=== PATIENT | male | born 1965 | race Two or more races ===

== ENCOUNTER 2025-06-01 11:41 | Observation (INO) | payer MEDICAID, SELFPAY ==
[2025-06-01 11:55] VITALS: BP 169/81; PULSE 70; RESP 16; TEMP 37; O2SAT 100; BMI 30.9
--- NOTE | 2025-06-01 12:06 | PD.EDRME ---
Rapid Medical Screening Exam RME Arrival date/time: 06/01/25 11:41 59-year-old male with no known medical history was sent to the emergency room by his primary care provider for low hemoglobin level. Patient also states he is been having some abdominal pain for the last 4 days. I have greeted and performed a focused initial assessment of this patient. A comprehensive ED assessment and evaluation of the patient, analysis of all test results, and completion of the medical decision making process will be conducted by additional ED providers. Chief Complaint: General Adult/Misc Complain Time Seen by Provider: 06/01/25 11:55 Vital signs: Vital Signs Temperature 98.6 F 06/01/25 11:55 Pulse Rate 70 06/01/25 11:55 Respiratory Rate 16 06/01/25 11:55 Blood Pressure 169/81 H 06/01/25 11:55 Pulse Oximetry (%) 100 06/01/25 11:55 Oxygen Delivery Method Room Air 06/01/25 11:55 Vital signs reviewed by provider: Yes
[2025-06-01 12:53] LABS: Basophils # (Auto) 0.0 Thou/mm3 (0.0-0.2); Basophils % (Auto) 0 % (0-2.5); Eosinophils # (Auto) 0.2 Thou/mm3 (0.0-0.5); Eosinophils % (Auto) 3 % (0-10); Hematocrit 29.9 % (41.0-53.0); Immature Granulocytes Auto 0.02 Thou/mm3 (0.00-0.00); Lymphocytes # (Auto) 1.4 Thou/mm3 (1.0-4.8); Lymphocytes % (Auto) 22 % (10-50); Mean Corpuscular HGB Conc 28.4 g/dl (31.0-37.0); Mean Corpuscular Hemoglobin 18.8 pg (25.0-35.0); Mean Corpuscular Volume 66 fL (80-100); Monocytes # (Auto) 0.5 Thou/mm3 (0.0-0.8); Monocytes % (Auto) 8 % (0-12); Neutrophils # (Auto) 4.0 Thou/mm3 (1.8-7.7); Neutrophils % (Auto) 66 % (37-80); Nucleated Red Blood Cell # 0.00 Thou/mm3 (0.00-0.00); Nucleated Red Blood Cell % 0 /100 WBC (0); Platelet Count 289 Thou/mm3 (140-440); RDW Standard Deviation 44.5 fL (35.1-43.9); Red Blood Count 4.53 Miln/mm3 (4.50-5.90); White Blood Count 6.1 Thou/mm3 (3.8-10.6)
[2025-06-01 12:56] LABS: Hemoglobin 8.5 g/dL (13.5-16.0)
[2025-06-01 13:00] LABS: INR 1.0 (0.9-1.3); Partial Thromboplastin Time 23.4 Seconds (22.0-36.0); Prothrombin Time 10.9 Seconds (9.0-12.2)
[2025-06-01 13:03] LABS: Alanine Aminotransferase 40 U/L (10-49); Albumin, Serum 4.5 gm/dL (3.5-5.0); Albumin/Globulin Ratio 1.6 (1.2-2.2); Alkaline Phosphatase 62 U/L (46-116); Anion Gap 9 (7-16); Aspartate Amino Transferase 38 U/L (0-34); BUN/Creatinine Ratio 13 Ratio (12-20); Bilirubin,Total 0.9 mg/dL (0.3-1.2); Blood Urea Nitrogen 10 mg/dL (9-23); Calcium 9.1 mg/dL (8.3-10.6); Calcium (Corrected) 9.1 mg/dL (8.5-10.1); Carbon Dioxide 26.6 mMol/L (20.0-31.0); Chloride 105 mMol/L (98-107); Creatinine (Component) 0.8 mg/dL (0.6-1.3); Estimated Creatinine Clearance 121.7 mL/min (>60); Globulin 2.8 gm/dL (2.3-3.5); Glucose 194 mg/dL (74-106); Osmolality,Calculated 285 (275-295); Potassium 4.4 mMol/L (3.4-5.1); Sodium 141 mMol/L (136-145); Total Protein 7.3 gm/dL (5.7-8.2); eGFR > 60 See Note
[2025-06-01 15:18] LABS: OBS Card Lot # 0124; OBS QC OK? Yes; Occult Blood, Stool Negative (Negative)
[2025-06-01 15:40] LABS: OBS Developer Lot # 04/24
[2025-06-01 15:41] VITALS: BP 146/78; PULSE 65; RESP 18; TEMP 37; O2SAT 99
--- NOTE | 2025-06-01 15:41 | ESHP_ITS ---
<Statement entered by Candido Lopez MD - 06/01/25 19:47> I saw and examined patient personally and supervised PGY 1 resident, Dr. Molina with formulating a management plan. I agree with the documentation with the exceptions as listed below. Patient is a Australian-speaking 59-year-old male with a PMH of HTN, HLD, and pre- diabetes who presented directly from clinic to the [facility] ED on 06/01/25 after being urged to do so by his PCP for a hemoglobin of 7.2. Patient was admitted for the work-up and management of microcytic anemia suspected to be 2/2 GI bleed. Problem list: 1. Acute blood loss anemia secondary to GI bleed for investigation 2. Hematochezia 3. Primary hypertension 4. Hyperlipidemia Patient's presented with a history of hematochezia for the last few days. On admission his hemoglobin was found to be 8.1. GI, Dr. Covarrubias was consulted who recommended colonoscopy after adequate bowel prep. Plan of care discussed with Attending Dr. Jacob Lopez MD PGY 2 Disclaimer: This note was dictated by speech recognition. Minor errors in human geography faculty member may be present due to voice recognition software. Documentation for date of: 06/01/25 HPI History of Present Illness History of present illness: Patient is a Australian-speaking 59-year-old male with a PMH of HTN, HLD, and pre- diabetes who presented directly from clinic to the [facility] ED on 06/01/25 after being urged to do so by his PCP for a hemoglobin of 7.2. He reports abdominal pain that has been ongoing for 5 days but states that this was not the reason he came to the hospital. The abdominal pain is primarily localized to the epigastrium and LLQ and worsens with palpation but not with food intake. This pain comes and goes and is associated with the urge to defecate and he endorses ongoing diarrhea of 2 days duration. He also reports that he has had an upper endoscopy done before which found bacteria and 2 lower endoscopies that only showed external hemorrhoids but were otherwise benign. Patient states that he often has 4-5 day episodes of hematochezia (with red blood noted in his stool) that seem to worsen when he feels like his hemorrhoids have become more swollen. He denies any recent fever, cough, chest pain, shortness of breath, constipation, urinary symptoms, or leg swelling. PSH: none Medications: HTN medications Allergies: NKDA FH: none SH: lives in a house in [place] with and 3 kids, drank an average of 3- 6 beers per day from age 17-now, smoked a pack a day from age [age], used to do cocaine in his 30s In the ED, vitals showed: BP 169/81 HR 70 RR 16 Temp 98.6 SpO2 100% on room air CBC showed Hgb 8.5 (MCV 66, RDW 44.5) but was otherwise WNL. Coagulation panel was WNL. CMP showed glucose 194, AST 38, and ALT 40. Stool occult blood was negative. Imaging: None In the ED, patient was started on GoLytely in preparation for endoscopic studies by GI (Dr. Covarrubias). Patient was admitted for the work-up and management of microcytic anemia suspected to be 2/2 GI bleed. Review of Systems Review of Systems Systems Reviewed: All systems reviewed, normal except as documented Exam Vital Signs Temp Pulse Resp BP Pulse Ox O2 Del Method 98.6 F 70 16 169/81 H 100 Room Air 06/01/25 11:55 06/01/25 11:55 06/01/25 11:55 06/01/25 11:55 06/01/25 11:55 06/01/25 11:55 Narrative Exam General: A/O x3, no acute distress. Skin: Vitiligo of bilateral hands. Warm, dry, intact, no obvious rash. Head: Normocephalic, atraumatic. Eyes: PERRL, EOMI. Anicteric, vision grossly intact. Ears: No ear pain, no ear discharge, Hearing grossly intact. Nose: No nasal discharge. Mouth/Throat: Oral mucosa moist. No obvious lesions in oropharynx. Neck: Neck supple, non-tender, no cervical lymphadenopathy. Cardiovascular: Regular rate and rhythm, no murmur, no JVD or carotid bruits. +S1/S2. Respiratory: Bilateral lungs are clear to auscultation, respirations unlabored, no crackles, no wheezing. No accessory muscle use. Gastrointestinal: Abdominal tenderness to palpation of epigastrium and LLQ. Soft, non-distended, no palpable masses. No guarding or rebound tenderness. Peristalsis present. Extremities: Symmetrical, no significant deformities. No edema, no cyanosis, no clubbing. 2+ radial pulse bilaterally, 2+ posterior tibial pulse bilaterally. Neuro: No focal deficits observed. Conversant, moving all extremities. No overt cerebellar signs/incoordination. Psychiatric: Cooperative, appropriate affect. Results: Labs 06/02/25 05:09 06/02/25 05:09 Labs: Short CBC 06/01/25 Range/Units 12:35 WBC 6.1 (3.8-10.6) Thou/mm3 Hgb 8.5 L (13.5-16.0) g/dL Hct 29.9 L (41.0-53.0) % Plt Count 289 (140-440) Thou/mm3 BMP 06/01/25 12:35 Sodium 141 Potassium 4.4 Chloride 105 Carbon Dioxide 26.6 BUN 10 Creatinine 0.8 Glucose 194 H Calcium 9.1 Liver Function 06/01/25 Range/Units 12:35 Total Bilirubin 0.9 (0.3-1.2) mg/dL AST 38 H (0-34) U/L ALT 40 (10-49) U/L Alkaline Phosphatase 62 (46-116) U/L Albumin 4.5 (3.5-5.0) gm/dL Quality Measures Quality Measures none Medications Home Medications and Allergies Home Medications ?Medication ?Instructions ?Recorded ?Confirmed ?Type lisinopril 40 mg tablet 40 mg PO QDAY high blood pre ssure 06/01/25 06/01/25 History Allergies Allergy/AdvReac Type Severity Reaction Status Date / Time No Known Allergies Allergy Verified 06/01/25 16:25 Visit Medications Polyethylene Glycol/Electrolytes (Na Sanches/Nahco3/Max/Peg (Golytely) 4,000 Ml Btl) 4,000 ml PO X1 ONE Stop: 06/01/25 15:08 Assessment & Plan Plan Patient is a Australian-speaking 59-year-old male with a PMH of HTN, HLD, and pre- diabetes who presented directly from clinic to the [facility] ED on 06/01/25 after being urged to do so by his PCP for a hemoglobin of 7.2. Patient was admitted for the work-up and management of microcytic anemia suspected to be 2/2 GI bleed. #??GI bleed #??Acute blood loss anemia #Microcytic anemia 06/01 admission Hgb 8.5 (MCV 66, RDW 44.5), coagulation panel WNL, stool occult blood (-) Patient reports that he came here after his clinic urged him to for Hgb 7.2 Endorses 5 days of epigastric and LLQ abdominal pain (along with 2 days of non- bloody diarrhea, no hematemesis) that does not worsen with food intake as well as recurrent hematochezia that patient believes is due to his external hemorrhoids Also reports that he previously had an upper endoscopy performed before that found bacteria (possible H.pylori) 01/02/19 colonoscopy showed benign findings There may also be a concomitant iron deficiency anemia which is the most common cause of microcytic anemias Reports drinking 3-6 beers per day that is ongoing and started at age 17 (now 59) DDx: bleeding external hemorrhoids, diverticulosis, peptic ulcer disease, esophageal varices, gastritis Dx: -Upper and lower EGD pending -Consider iron panel Rx: -Monitor Hgb, transfuse if <7 -NPO, pending EGD -Avoid aspirin and NSAIDs #Hypertension Patient reports PMH of HTN and home medications for HTN treatment 06/01 admission BP 169/81, asymptomatic Rx: -Consider restarting home medications after medication reconciliation is completed #Hyperlipidemia Patient reports PMH of HLD Dx: -Ordered lipid panel, results pending #Pre-diabetes Patient reports PMH of pre-diabetes Dx: -Ordered hemoglobin A1c, results pending #Alcohol use disorder 06/01 admission AST slightly elevated 38, ALT 40 (WNL), total bilirubin WNL, coagulation panel WNL, no jaundice or ascites noted on physical exam Reports drinking 3-6 beers per day that is ongoing and started at age 17 (now 59) Rx: -Counseling on cessation of alcohol intake Hospital Management: Disposition: admitted for the work-up and management of microcytic anemia suspected to be 2/2 GI bleed Diet: NPO (pending EGD) GI Prophylaxis: none (consider IV Protonix after EGD) Bowel Prophylaxis: none DVT Prophylaxis: contraindicated (bleeding risk) CODE STATUS: Full Code I have examined the patient and conferred with my attending, Dr. James, and my senior resident, Dr. Lopez, regarding them. Martín Molina, DO PGY-1 Internal Medicine Attending Provider Attestation/Addendum I have examined the patient, reviewed labs and imaging findings, discussed the case with the resident(s), and reviewed entered orders. I agree with the plan of care as outlined in this note, with these additional summaries/recommendations: After examination of the patient and review of the clinical data, I feel that this patient needs admission to the hospital for further treatment and evaluation. Patient is a 59-year-old male with a medical history of primary hypertension, dyslipidemia, and obesity who presents to [facility] emergency department on 06/01/2025 with chief complaint of malaise, low hemoglobin, and intermittent abdominal pain. Patient seen at bedside. He reports he was seen by his primary care physician today and was sent to the emergency room because of hemoglobin 7.2 and abdominal pain. Patient diagnosed with GI bleed. Most likely lower. Start IV fluids and GoLytely. Gastroenterology consulted with plans for colonoscopy. Hold all chemical anticoagulation. Clear liquid diet okay. Transfuse for hemoglobin less than 7. No evidence of coagulopathy. Please see residents note for additional details and management. Dr. Jacob MD
--- NOTE | 2025-06-01 15:46 | PD.EDADULT ---
ED General RME/HPI General Chief complaint: General Adult/Misc Complain Stated complaint: SENT BY CLINIC TO CHECK FOR ANEMIA, ABD PAIN Time Seen by Provider: 06/01/25 11:55 Arrival date/time: 06/01/25 11:41 Limitations: no limitations RME / HPI RME / HPI narrative: 06/01/25 11:41 59-year-old male with no known medical history was sent to the emergency room by his primary care provider for low hemoglobin level. Patient also states he is been having some abdominal pain for the last 4 days. I have greeted and performed a focused initial assessment of this patient. A comprehensive ED assessment and evaluation of the patient, analysis of all test results, and completion of the medical decision making process will be conducted by additional ED providers. DR. WAHL MAIN ED EVALUATION 59 year old male with history of hypertension and anemia presents to the ED, referred by his PCP, for evaluation of low hemoglobin levels. Patient states he had consulted his PCP for abdominal pain and bright red blood in stool beginning several days ago and had labs performed. States he was called today stating his hemoglobin was low and advised to come to the ED for further evaluation and treatment. Patient states he has had the bright red blood in stool on/off for several weeks. However, occurring more frequently in the last 4 days. Mentioned in 2019 he was evaluated here also for blood in stool and had a colonoscopy performed where he was then transferred to [place] for GI services. States while in [place] had both an EGD and colonoscopy performed that reportedly only showed the hemorrhoids, otherwise negative. No other associated symptoms reported. Denies fevers, chills, shortness of breath, weakness, nausea, vomiting, or urinary symptoms. Related Data Home Medications ?Medication ?Instructions ?Recorded ?Confirmed ferrous sulfate 325 mg (65 mg 01/01/19 iron) tablet (iron) Review of Systems Review of Systems Systems Reviewed: All systems reviewed, normal except as documented Past Medical History Past Medical History CARDIAC: Positive Hypercholesterolemia HEMATOLOGIC: Positive Anemia Social History SMOKING STATUS: Never smoker ED Exam General Limitations: Present no limitations General appearance: Present alert and in no apparent distress Head Head exam: Present atraumatic, normocephalic and normal inspection Eye Eye exam: Present normal appearance, PERRL and EOMI ENT ENT exam: Present normal exam, normal oropharynx and mucous membranes moist Neck Neck exam: Present normal inspection, full ROM and trachea midline Chest Chest inspection: Present normal inspection and symmetric chest wall rise Respiratory Respiratory exam: Present normal lung sounds bilaterally Cardiovascular Cardiovascular exam: Present regular rate, normal rhythm and normal heart sounds Abdominal Exam Abdominal exam: Present soft and normal bowel sounds Rectal Exam Rectal exam: Present normal rectal tone, hemorrhoids and other (Exam performed in presence of female RN, there are external hemorrhoids noted that are soft, not actively bleeding. No stool in rectal vault. ) Extremities Exam Extremities exam: Present normal inspection and full ROM Back Exam Back exam: Present normal inspection and full ROM Neurological Exam Neurological exam: Present alert, oriented X3 and CN II-XII intact Psychiatric Psychiatric exam: Present normal affect and normal mood Skin Skin exam: Present warm, dry, intact and normal color Course Quality Measures none Orders Category Date Time Status COVID-19 Screening Questionnaire NOW Care 06/01/25 15:08 Active Decision to Admit X1 Care 06/01/25 15:08 Active Consult to Gastroenterology Stat Cons 06/01/25 15:07 Ordered Diet Clear Liquid Diet 06/01/25 Dinner Active CBC Stat Lab 06/01/25 12:35 Completed CMP [Comprehensive Metabolic Panel] Stat Lab 06/01/25 12:35 Completed Occult Blood, Stool (LAB) Routine Lab 06/01/25 14:45 Completed PT [Prothrombin Time with INR] Stat Lab 06/01/25 12:35 Completed PTT [Partial Thromboplastin Time] Stat Lab 06/01/25 12:35 Completed Red Blood Cells Stat Lab 06/01/25 12:35 Results Troponin I Stat Lab 06/01/25 14:57 Ordered Type and Screen Stat Lab 06/01/25 12:35 Results NA SAL/NAHCO3/SHANNON/PEG (Golytely) [Golytely] Med 06/01/25 15:07 Pending 4,000 ml PO X1 ONE Vital Signs Vital signs: Vital Signs Temperature 98.6 F 06/01/25 11:55 Pulse Rate 70 06/01/25 11:55 Respiratory Rate 16 06/01/25 11:55 Blood Pressure 169/81 H 06/01/25 11:55 Pulse Oximetry (%) 100 06/01/25 11:55 Oxygen Delivery Method Room Air 06/01/25 11:55 Pulse ox is 100% on room air which is adequate. Discharge Plan Plan Patient Disposition: Admit Acute Care w/in Hospital Problem List Clinical Impression: GI (gastrointestinal bleed) MDM Narrative MDM hospital course (for use when minimal MDM required): 59-year-old male with history of iron deficiency anemia and external hemorrhoids presents to the emergency department today after 1 to 2 weeks of bright red blood per rectum. The patient states that he normally will have drops of blood coming from his rectum when he is trying to have a bowel movement. It is usually without stool or that he has blood. Patient went to his primary care physician today and had a test that showed that he was anemic . Patient does have some fatigue with increasing in bright red blood per rectum over the last 1 week. Patient denies chest pain or shortness of breath. No dizziness. Last colonoscopy that is documented on his record was in 2019 which was negative negative. It was done at [place] at the time. Patient otherwise is not on aspirin. Not on blood thinner. Is not a heavy drinker. In the emergency department the patient otherwise has a normal pulse, hemoglobin is abnormal at 8.5/29. His platelets are normal at 289. BUN and creatinine are normal at 10/0.8. On rectal exam here in the emergency department the patient has external hemorrhoids that are soft. The rectal exam was done with the nursing present. There was no stool in the vault. There was no Hemoccult completed because there was no stool in the vault. Patient's skin is slightly pale but otherwise normal cap refill. Lungs are clear bilaterally. Patient is not tachycardic. No murmurs No petechiae noted. In summary this is a 59-year-old male with history of anemia with worsening lower GI bleed over the last 2 weeks. Patient noted to have a hemoglobin of 8. There is no previous hemoglobin in our system. Otherwise coags are normal with normal LFTs normal BUN/creatinine but abnormal hemoglobin and hematocrit. Platelets are normal. Discussed with our GI on-call Dr. Covarrubias who agrees that the patient likely needs a colonoscopy for he gets discharged home. He recommends that we start GoLytely now and keep the patient on a clear liquid diet now and he will consult and do a colonoscopy as soon as possible. Alessia Harris, am scribing for and in the presence of Dr. Wahl. 1503p: I spoke with GI Dr. Covarrubias. Discussed patients PMHx, HPI, ED course, exam findings, labs results. He agrees to consult. 1505p: I spoke with hospitalist team A for admission. Clinical Information Provided by: patient Medical Records reviewed [facility] Meds/Rx considered, not ordered None Labs/Rad/Tests considered, not ordered None Chronic Illness/Social Conditions which may negatively complicate care or outcome(s)-explain: None or not applicable EKG EKG not done Labs Labs: see narrative above Imaging Imaging interpretation: none Medication Administration(s) Medication Administration History Polyethylene Glycol/Electrolytes (Na Sal/Nahco3/Shannon/Peg (Golytely) 4,000 Ml Btl) 4,000 ml PO X1 ONE Stop: 06/01/25 15:08 See above Diagnosis Diagnoses ruled out and/or further discussions: GI bleed
[2025-06-01 16:37] LABS: Troponin I 0.035 ng/mL (0.0-0.045)
[2025-06-01 17:47] VITALS: BMI 30.9
--- NOTE | 2025-06-01 17:52 | PD.RESCONSUL ---
HPI Data of Consult Requesting Physician: Armando James MD Admitting Provider: Armando James MD Attending Provider: Armando James MD Primary Care Provider: CAITIE Hurley ([facility]) Consult Narrative Reason for consult: Hgb 7.2 outpatient, c/f lower GI bleed History of present illness: Mr. Montiel is a 59 year old gentleman with hx of htn, hld, and prediabetes, who presented to the ed after being prompted to go to the ED by [place]. He has a history of chronic microcytic anemia for which he was has previously recieved iron infusions. His outpatient labs were reported to have hgb 7.2. He reports having very minimal epigastric tenderness and LLQ pain that is 1/10. He denies diarrhea or constipation, and endorses going to the bathroom 2 times a day. He states that he has history of hemorrhoids that he was able to palpate. He reports self expressing the hemorrhoids and having some small bleeding. He reports having last colonoscopy about 4-5 years ago, He notes blood when he wipes but no mick blood per rectum. He otherwise feels well, no fever, no chills, no cough no chest pain, no shortness of breath dysuria. His last meal was at 10:30 AM today. PSH: none Medications: HTN medications Allergies: NKDA FH: none SH: lives in a house in [place] with and 3 kids, drank an average of 3-6 beers per day from age 17-now, smoked a pack a day from age [age], used to do cocaine in his 30s In the ED, vitals showed: BP 169/81 HR 70 RR 16 Temp 98.6 SpO2 100% on room air CBC showed Hgb 8.5 (MCV 66, RDW 44.5) but was otherwise WNL. Coagulation panel was WNL. CMP showed glucose 194, AST 38, and ALT 40. Stool occult blood was negative. cc:: cc: Armando James MD Exam Vital Signs Temp Pulse Resp BP Pulse Ox O2 Del Method 98.6 F 65 18 146/78 H 99 Room Air 06/01/25 15:41 06/01/25 15:41 06/01/25 15:41 06/01/25 15:41 06/01/25 15:41 06/01/25 15:41 Narrative Exam GENERAL: no acute distress, AAO x3, sitting comfortably in chair, not in hospital gown HEENT: Head AT/ NC. Mucous membranes moist. PERRL. NECK: Supple, no lymphadenopathy, no carotid bruits. CARDIOVASCULAR: RRR. Normal S1/S2, No m/r/g. No pitting edema of bilateral LEs. RESPIRATORY: CTAB. No wheezing, rhonchi, crackles. GASTROINTESTINAL: Abdomen soft, non tender no palpable masses. Bowel sounds present c/o 1/10 epigastric and LLQ tenderness MUSCULOSKELETAL:? No cyanosis or edema, no visible joint swelling. NEUROLOGICAL: CN II-XII grossly intact. No focal deficits. Sensation intact, symmetric. PSYCHIATRIC: Awake and alert, not agitated, normal mood and affect. SKIN: vitaligo on dorsal aspect of hands Results Labs 06/01/25 12:35 06/01/25 12:35 Labs: Short CBC 06/01/25 Range/Units 12:35 WBC 6.1 (3.8-10.6) Thou/mm3 Hgb 8.5 L (13.5-16.0) g/dL Hct 29.9 L (41.0-53.0) % Plt Count 289 (140-440) Thou/mm3 BMP 06/01/25 12:35 Sodium 141 Potassium 4.4 Chloride 105 Carbon Dioxide 26.6 BUN 10 Creatinine 0.8 Glucose 194 H Calcium 9.1 Cardiac Enzymes 06/01/25 Range/Units 15:45 Troponin I 0.035 (0.0-0.045) ng/mL Liver Function 06/01/25 Range/Units 12:35 Total Bilirubin 0.9 (0.3-1.2) mg/dL AST 38 H (0-34) U/L ALT 40 (10-49) U/L Alkaline Phosphatase 62 (46-116) U/L Albumin 4.5 (3.5-5.0) gm/dL Quality Measures Quality Measures VTE prophylaxis Medications Home Medications and Allergies Home Medications ?Medication ?Instructions ?Recorded ?Confirmed ?Type lisinopril 40 mg tablet 40 mg PO QDAY high blood pressure 06/01/25 06/01/25 History Allergies Allergy/AdvReac Type Severity Reaction Status Date / Time No Known Allergies Allergy Verified 06/01/25 16:25 Visit Medications Discontinued Medications Polyethylene Glycol/Electrolytes (Na Sanches/Nahco3/Max/Peg (Golytely) 4,000 Ml Btl) 4,000 ml PO X1 ONE Stop: 06/01/25 16:31 Assessment & Plan Plan Mr. Montiel is a 59 year old gentleman with hx of prediabetes, htn, hld, and chronic microcytic anemia #Chronic Microcytic Anemia Ddx internal vs external hemrrhoids. diverticulosis, gastric ulcers pt reports having hemrhoids that he can palpate. He notes some hematachezia but no mick red blood per rectum. on admission FOBT negative. Has previously recieved iron infusions in ~Aug 2024. pt last reported colonoscopy was ~4 years ago, with no concerning findings. Has reported having endoscopy in the past with bacteria unclear if he completed treatment for hpylori at that time he has reported 5-6 etoh drinks /week so there is concern for possible varicies, however he has not had any hematemesis. Hgb 8.5 on admission, unclear what his baseline is, was sent to the ED by PCP for hgb 7.2 on labs. pt is asymptomatic of his anemia. Plan: - Golytely - colonoscopy tomorrow if stools are clear - Clear liquid diet - Iron panel, consider iron infusion during this admission - Transfuse if symptomatic or Hgb<7 HTN HLD Prediabetes -management per primary team Plan discussed with Dr. Satish Garcia MD PGY1 Attending Provider Attestation/Addendum Patient evaluated patient examined by me Laboratory data reviewed GoLytely prep consent for colonoscopy with possible biopsy possible therapeutic intervention under intravenous moderate sedation Clear liquid diet to continue as long as the patient is drinking GoLytely If 1 gallon of GoLytely is not good enough start the second gallon If colonoscopy is negative we will consider doing an upper endoscopy Thank you for the opportunity to participate in the care of this patient
[2025-06-01 18:31] LABS: Cardiac Risk Estimate 3.5 RATIO (4.0-6.7); Cholesterol 153 mg/dL (132-200); HDL Cholesterol 44 mg/dL (40-60); LDL Cholesterol,Calculated 83 mg/dL (0-130); Triglycerides 131 mg/dL (30-150)
[2025-06-01 18:34] LABS: Ferritin 4 ng/mL (10.5-307.3); Iron 7 mcg/dL (65-175); Percent Iron Saturation 1 % (20-55); Total Iron Binding Capacity 450 mcg/dL (250-425); Unsaturated Iron Binding 443 (225-295)
[2025-06-01 19:37] VITALS: RESP 99
[2025-06-01 20:00] VITALS: BP 166/78; PULSE 60; RESP 17; TEMP 36.2; O2SAT 100
[2025-06-01] MEDS: NA SU/NAHCO3/KC/PEG (Golytely) 4,000 ML BTL 4000 ML PO (20:56)
[2025-06-02] VITALS (21 sets, daily range): BP systolic 132–170; BP diastolic 68–102; PULSE 57–78; RESP 12–98; TEMP 36.2–36.6; O2SAT 97–100
[2025-06-02 06:18] LABS: Basophils # (Auto) 0.0 Thou/mm3 (0.0-0.2); Basophils % (Auto) 1 % (0-2.5); Eosinophils # (Auto) 0.3 Thou/mm3 (0.0-0.5); Eosinophils % (Auto) 6 % (0-10); Hematocrit 27.5 % (41.0-53.0); Immature Granulocytes Auto 0.01 Thou/mm3 (0.00-0.00); Lymphocytes # (Auto) 1.6 Thou/mm3 (1.0-4.8); Lymphocytes % (Auto) 31 % (10-50); Mean Corpuscular HGB Conc 28.7 g/dl (31.0-37.0); Mean Corpuscular Hemoglobin 18.8 pg (25.0-35.0); Mean Corpuscular Volume 65 fL (80-100); Monocytes # (Auto) 0.6 Thou/mm3 (0.0-0.8); Monocytes % (Auto) 11 % (0-12); Neutrophils # (Auto) 2.6 Thou/mm3 (1.8-7.7); Neutrophils % (Auto) 51 % (37-80); Nucleated Red Blood Cell # 0.00 Thou/mm3 (0.00-0.00); Nucleated Red Blood Cell % 0 /100 WBC (0); Platelet Count 253 Thou/mm3 (140-440); RDW Standard Deviation 43.5 fL (35.1-43.9); Red Blood Count 4.21 Miln/mm3 (4.50-5.90); White Blood Count 5.1 Thou/mm3 (3.8-10.6)
[2025-06-02 06:28] LABS: Hemoglobin 7.9 g/dL (13.5-16.0)
[2025-06-02 06:32] LABS: Alanine Aminotransferase 43 U/L (10-49); Albumin, Serum 4.1 gm/dL (3.5-5.0); Albumin/Globulin Ratio 1.7 (1.2-2.2); Alkaline Phosphatase 54 U/L (46-116); Anion Gap 9 (7-16); Aspartate Amino Transferase 39 U/L (0-34); BUN/Creatinine Ratio 11 Ratio (12-20); Bilirubin,Total 1.0 mg/dL (0.3-1.2); Blood Urea Nitrogen 8 mg/dL (9-23); Calcium 8.8 mg/dL (8.3-10.6); Calcium (Corrected) 8.8 mg/dL (8.5-10.1); Carbon Dioxide 26.4 mMol/L (20.0-31.0); Chloride 107 mMol/L (98-107); Creatinine (Component) 0.7 mg/dL (0.6-1.3); Estimated Creatinine Clearance 139.0 mL/min (>60); Globulin 2.4 gm/dL (2.3-3.5); Glucose 121 mg/dL (74-106); Osmolality,Calculated 282 (275-295); Potassium 4.2 mMol/L (3.4-5.1); Sodium 142 mMol/L (136-145); Total Protein 6.5 gm/dL (5.7-8.2); eGFR > 60 See Note
[2025-06-02 06:37] LABS: Glucose Estimated Average 140 mg/dL (80-131); Hemoglobin A1C 6.5 % Hgb (4.8-6.0)
--- NOTE | 2025-06-02 14:42 | ESPR_ITS ---
Documentation for date of: 06/02/25 No overnight events. Patient examined at bedside. Continue GoLytely prep for planned colonoscopy this evening with gastroenterology. Patient's past medical history includes hypertension on lisinopril 40 mg daily, given GoLytely during hospital course patient was started on half dose, lisinopril 20 MGs daily. Please hold if systolic blood pressure less than 110 or MAP less than 65. Patient ASCVD score 14.1% thus recommended high intensity statins. Starting patient off of atorvastatin 40 mg p.o. at bedtime and titrate up to 80 mg at bedtime outpatient. New diagnosis of diabetes mellitus, 6.5. Sliding scale started. Consult diabetic education. Start metformin upon discharge. I have discussed the case with supervising physician and internet media planner physician involved in the care of patient. I personally saw and examined patient and discussed the assessment and plan with the entire medical team, including attending. I agree with assessment and plan as documented below. - The patient's plan was discussed with attending Dr. Halley Paulino MD PGY2 Internal Medicine Subjective Subjective Interval history: No overnight events. Patient was examined at bedside; they appear A&Ox4 and in NAD. Labs today significant for Hgb 8.5 -> 7.9 but was otherwise WNL. Hemoglobin A1c came back at 6.5. Iron panel results showed low iron and ferritin with high TIBC, suggestive of iron deficiency anemia; this is concerning for possible colorectal cancer. Physical exam was benign and unchanged from yesterday. Patient is still pending EGD which will hopefully take place today. Plan Updates: -None Exam Vital Signs Temp Pulse Resp BP Pulse Ox O2 Del Method 97.7 F 57 L 18 133/69 H 99 Room Air 06/02/25 12:00 06/02/25 12:00 06/02/25 12:00 06/02/25 12:00 06/02/25 12:00 06/02/25 12:00 Narrative Exam General: A/O x3, no acute distress. Skin: Vitiligo of bilateral hands. Warm, dry, intact, no obvious rash. Head: Normocephalic, atraumatic. Eyes: PERRL, EOMI. Anicteric, vision grossly intact. Ears: No ear pain, no ear discharge, Hearing grossly intact. Nose: No nasal discharge. Mouth/Throat: Oral mucosa moist. No obvious lesions in oropharynx. Neck: Neck supple, non-tender, no cervical lymphadenopathy. Cardiovascular: Regular rate and rhythm, no murmur, no JVD or carotid bruits. +S1/S2. Respiratory: Bilateral lungs are clear to auscultation, respirations unlabored, no crackles, no wheezing. No accessory muscle use. Gastrointestinal: Abdominal tenderness to palpation of epigastrium and LLQ. Soft, non-distended, no palpable masses. No guarding or rebound tenderness. Peristalsis present. Extremities: Symmetrical, no significant deformities. No edema, no cyanosis, no clubbing. 2+ radial pulse bilaterally, 2+ posterior tibial pulse bilaterally. Neuro: No focal deficits observed. Conversant, moving all extremities. No overt cerebellar signs/incoordination. Psychiatric: Cooperative, appropriate affect. Objective Labs 06/03/25 05:02 06/03/25 05:02 Labs: Laboratory Results - last 24 hr 06/01/25 06/01/25 06/01/25 12:35 14:45 15:45 WBC RBC Hgb Hct MCV MCH MCHC RDW Std Deviation Plt Count Neut % (Auto) Lymph % (Auto) [place] % (Auto) Eos % (Auto) Baso % (Auto) Neut # (Auto) Lymph # (Auto) [place] # (Auto) Eos # (Auto) Baso # (Auto) Immature Gran # (Auto) Absolute Nucleated RBC Immature Gran % Nucleated RBC % Sodium Potassium Chloride Carbon Dioxide Anion Gap BUN Creatinine Estim Creat Clear Calc eGFR BUN/Creatinine Ratio Glucose Estimated Ave Glu mg/dL Hemoglobin A1c Calculated Osmolality Calcium Corrected Calcium Iron TIBC Iron Saturation Unsat Iron Binding Ferritin Total Bilirubin AST ALT Alkaline Phosphatase Troponin I 0.035 Total Protein Albumin Globulin Albumin/Globulin Ratio Triglycerides Cholesterol LDL Cholesterol, Calc HDL Cholesterol Cholesterol/HDL Ratio Stool Occult Blood Negative Blood Type O Positive Antibody Screen NEGATIVE Crossmatch See Detail Blood Bank Wristband ID Yes 06/01/25 06/02/25 16:20 05:09 WBC 5.1 RBC 4.21 L Hgb 7.9 L Hct 27.5 L MCV 65 L MCH 18.8 L MCHC 28.7 L RDW Std Deviation 43.5 Plt Count 253 D Neut % (Auto) 51 Lymph % (Auto) 31 [place] % (Auto) 11 Eos % (Auto) 6 Baso % (Auto) 1 Neut # (Auto) 2.6 Lymph # (Auto) 1.6 [place] # (Auto) 0.6 Eos # (Auto) 0.3 Baso # (Auto) 0.0 Immature Gran # (Auto) 0.01 H Absolute Nucleated RBC 0.00 Immature Gran % 0 Nucleated RBC % 0 Sodium 142 Potassium 4.2 Chloride 107 Carbon Dioxide 26.4 Anion Gap 9 BUN 8 L Creatinine 0.7 Estim Creat Clear Calc 139.0 eGFR > 60 BUN/Creatinine Ratio 11 L Glucose [address] Glu mg/dL 140 H Hemoglobin A1c 6.5 H Calculated Osmolality 282 Calcium 8.8 Corrected Calcium 8.8 Iron 7 L TIBC 450 H Iron Saturation 1 L Unsat Iron Binding 443 H Ferritin 4 L Total Bilirubin 1.0 AST 39 H ALT 43 Alkaline Phosphatase 54 Troponin I Total Protein 6.5 Albumin 4.1 Globulin 2.4 Albumin/Globulin Ratio 1.7 Triglycerides 131 Cholesterol 153 LDL Cholesterol, Calc 83 HDL Cholesterol 44 Cholesterol/HDL Ratio 3.5 L Stool Occult Blood Blood Type Antibody Screen Crossmatch Blood Bank Wristband ID Quality Measures Quality Measures VTE prophylaxis Assessment & Plan Assessment Current Active Medications: Generic Name Dose Route Start Last Admin Trade Name Freq PRN Reason Stop Dose Admin Acetaminophen 650 mg 06/01/25 19:37 Acetaminophen 325 Mg Tablet PO 07/01/25 19:36 Q4HR PRN Fever >100 or Pain 1-3 Albuterol/Ipratropium 3 ml 06/01/25 19:37 Albuterol/Ipratropium (Duoneb) Rt Avelina 3 Ml Nebu INH 07/01/25 19:36 Q2HR PRN SHORTNESS OF BREATH OR WHEEZE Hydralazine HCl 10 mg 06/01/25 19:37 Hydralazine Inj 20 Mg/Ml Vial IVP 07/01/25 19:36 Q4HR PRN SBP >180 Ondansetron HCl 4 mg 06/01/25 19:37 Ondansetron Inj 2 Mg/Ml Inj 2 Ml IVP 07/01/25 19:36 Q6HR PRN NAUSEA OR VOMITING Protocol Plan Patient is a Setswana-speaking 59-year-old male with a PMH of HTN, HLD, and pre- diabetes who presented directly from clinic to the [facility] ED on 06/01/25 after being urged to do so by his PCP for a hemoglobin of 7.2. Patient was admitted for the work-up and management of microcytic anemia suspected to be 2/2 GI bleed. #??GI bleed #??Acute blood loss anemia #Microcytic anemia #Iron deficiency anemia #??Colorectal cancer 06/01 admission Hgb 8.5 (MCV 66, RDW 44.5), coagulation panel WNL, stool occult blood (-) Patient reports that he came here after his clinic urged him to for Hgb 7.2 Endorses 5 days of epigastric and LLQ abdominal pain (along with 2 days of non- bloody diarrhea, no hematemesis) that does not worsen with food intake as well as recurrent hematochezia that patient believes is due to his external hemorrhoids Also reports that he previously had an upper endoscopy performed before that found bacteria (possible H.pylori) 01/02/19 colonoscopy showed benign findings 06/01 iron panel was suggestive for iron deficiency anemia which raises concerns for colorectal cancer Reports drinking 3-6 beers per day that is ongoing and started at age 17 (now 59) DDx: bleeding external hemorrhoids, diverticulosis, peptic ulcer disease, esophageal varices, gastritis Dx: -Upper and lower EGD pending -Ordered iron panel, showed: iron 7, TIBC 450, iron saturation 1%, unsaturated iron binding 443, and ferritin 4, highly suggestive for iron deficiency anemia Rx: -Monitor Hgb, transfuse if <7 -NPO, pending EGD -Avoid aspirin and NSAIDs #Hypertension Patient reports PMH of HTN and home medications for HTN treatment 06/01 admission BP 169/81, asymptomatic Rx: -Lisinopril 20 mg qday, hold if MAP <65 or systolic BP <110-this is half home dose patient is currently on Golytely prep. -Plant to resume after Golytely complete -Hydralazine PRN #Hyperlipidemia Patient reports PMH of HLD ASCVD 14.1%, High intensity statin recommended Dx: -Atorvastatin 40 mg HS -Ordered lipid panel, showed: triglycerides 131, total cholesterol 153, LDL 83, HDL 44 #T2DM Patient reports PMH of pre-diabetes Based on this admission's HgbA1c, patient has now become diabetic-->Hgb A1c 6.5% Dx: -Insulin Sliding Scale Q6HR given NPO status -Consult Diabetic Education -Outpatient Metformin. #Alcohol use disorder 06/01 admission AST slightly elevated 38, ALT 40 (WNL), total bilirubin WNL, coagulation panel WNL, no jaundice or ascites noted on physical exam Reports drinking 3-6 beers per day that is ongoing and started at age 17 (now 59) Rx: -Counseling on cessation of alcohol intake Hospital Management: Disposition: admitted for the work-up and management of microcytic anemia suspected to be 2/2 GI bleed Diet: Clear Liquids (pending EGD) GI Prophylaxis: none (consider IV Protonix after EGD) Bowel Prophylaxis: none DVT Prophylaxis: contraindicated (bleeding risk) CODE STATUS: Full Code I have examined the patient and conferred with my attending, Dr. James, and my senior resident, Dr. Lopez, regarding them. Martín Molina DO PGY-1 Internal Medicine Attending Provider Attestation/Addendum I have examined the patient, reviewed labs and imaging findings, discussed the case with the resident(s), and reviewed entered orders. I agree with the plan of care as outlined in this note, with these additional summaries/recommendations: After examination of the patient and review of the clinical data, I feel that this patient needs admission to the hospital for further treatment and evaluation. Patient is a 59-year-old male with a medical history of primary hypertension, dyslipidemia, and obesity who presents to [facility] emergency department on 06/01/2025 with chief complaint of malaise, low hemoglobin, and intermittent abdominal pain. Patient seen at bedside. No acute overnight events. Patient seen drinking GoLytely and tolerating at this time. He endorses minimal abdominal discomfort which is generalized. Patient admitted for GI bleed. Hemoglobin down to 7.9 today. Will transfuse for hemoglobin less than 7. Iron panel returned showing severe iron deficiency anemia with ferritin 4. Anemia most likely multifactorial secondary to iron deficiency and acute blood loss anemia. Continue to hold all chemical anticoagulation. Gastroenterology consulted with plans for colonoscopy today if patient is clear. If no source of bleeding patient may require EGD prior to discharge. Patient updated on the plan and in agreement. All questions answered to satisfaction. Please see residents note for additional details and management. Dr. Jacob MD
[2025-06-02 17:23] LABS: Path Review Blood Smear Sent to Pathologist
[2025-06-02] MEDS: ATORVASTATIN CALCIUM 20 MG TABLET 40 MG PO (20:34)
[2025-06-02] MEDS: ACETAMINOPHEN 325 MG TABLET 650 MG PO (20:43)
[2025-06-03] VITALS (20 sets, daily range): BP systolic 127–168; BP diastolic 59–87; PULSE 61–77; RESP 16–99; TEMP 36.1–36.9; O2SAT 98–100; BMI 31.1
[2025-06-03 05:43] LABS: Basophils # (Auto) 0.0 Thou/mm3 (0.0-0.2); Basophils % (Auto) 0 % (0-2.5); Eosinophils # (Auto) 0.2 Thou/mm3 (0.0-0.5); Eosinophils % (Auto) 5 % (0-10); Hematocrit 26.6 % (41.0-53.0); Immature Granulocytes Auto 0.01 Thou/mm3 (0.00-0.00); Lymphocytes # (Auto) 1.4 Thou/mm3 (1.0-4.8); Lymphocytes % (Auto) 27 % (10-50); Mean Corpuscular HGB Conc 28.2 g/dl (31.0-37.0); Mean Corpuscular Hemoglobin 18.6 pg (25.0-35.0); Mean Corpuscular Volume 66 fL (80-100); Monocytes # (Auto) 0.6 Thou/mm3 (0.0-0.8); Monocytes % (Auto) 11 % (0-12); Neutrophils # (Auto) 3.1 Thou/mm3 (1.8-7.7); Neutrophils % (Auto) 57 % (37-80); Nucleated Red Blood Cell # 0.00 Thou/mm3 (0.00-0.00); Nucleated Red Blood Cell % 0 /100 WBC (0); Platelet Count 276 Thou/mm3 (140-440); RDW Standard Deviation 44.0 fL (35.1-43.9); Red Blood Count 4.04 Miln/mm3 (4.50-5.90); White Blood Count 5.4 Thou/mm3 (3.8-10.6)
[2025-06-03 05:45] LABS: Hemoglobin 7.5 g/dL (13.5-16.0)
[2025-06-03 06:00] LABS: Alanine Aminotransferase 39 U/L (10-49); Albumin, Serum 3.9 gm/dL (3.5-5.0); Albumin/Globulin Ratio 1.7 (1.2-2.2); Alkaline Phosphatase 52 U/L (46-116); Anion Gap 10 (7-16); Aspartate Amino Transferase 32 U/L (0-34); BUN/Creatinine Ratio 13 Ratio (12-20); Bilirubin,Total 0.7 mg/dL (0.3-1.2); Blood Urea Nitrogen 10 mg/dL (9-23); Calcium 8.5 mg/dL (8.3-10.6); Calcium (Corrected) 8.6 mg/dL (8.5-10.1); Carbon Dioxide 26.3 mMol/L (20.0-31.0); Chloride 107 mMol/L (98-107); Creatinine (Component) 0.8 mg/dL (0.6-1.3); Estimated Creatinine Clearance 121.7 mL/min (>60); Globulin 2.3 gm/dL (2.3-3.5); Glucose 169 mg/dL (74-106); Osmolality,Calculated 287 (275-295); Potassium 4.5 mMol/L (3.4-5.1); Sodium 143 mMol/L (136-145); Total Protein 6.2 gm/dL (5.7-8.2); eGFR > 60 See Note
[2025-06-03] MEDS: INSULIN LISPRO (AdmeLOG) 1 UNIT/0.01 ML UNIT SC (07:38)
--- NOTE | 2025-06-03 10:27 | PC.SS ---
Patient Brian Montiel is a 59 Year old male admitted for GI Bleed for Investigation. SS met with patient at bedside to discuss discharge plan and verify demographic information. Patient reports he lives at home with his family. Patient reports his daughter, Ana Maria Plunkett is his surrogate decision maker, [phone].. Patient is independent with ADL's and does not utilize any source of DME to assist with ambulation. Choice of pharmacy is [facility]. At time of discharge patient will discharge back home. Next of Kin, Daughter, Ana Maria Plunkett Discharge plan: Home
--- NOTE | 2025-06-03 11:38 | PC.SS ---
Patient is pending an EGD for today. Patient will discharge home when medically cleared.
--- NOTE | 2025-06-03 11:55 | ESPR_ITS ---
Documentation for date of: 06/03/25 No overnight events. Patient is now status post colonoscopy with gastroenterology. 25 noted for internal hemorrhoids, grade 3 status post band ligation. Mild diverticulosis also noted in the colon. Patient asked to continue high-fiber diet given diverticulosis. Continue medication. Currently clear liquids given scheduled endoscopy. Iron tablets to be added upon discharge. Continue sliding scale and atorvastatin. Pending EGD. Plan to discharge within the next 24 hours. Senior Resident Attestation: I have discussed the case with supervising physician and legal summer intern physician involved in the care of patient. I personally saw and examined patient and discussed the assessment and plan with the entire medical team, including attending. I agree with assessment and plan as documented below. Kandis Paulino MD PGY-2 Internal Medicine Subjective Subjective Interval history: No overnight events. Patient was examined at bedside; they appear A&Ox4 and in NAD. Vitals/ labs today significant for BP 162/80 and Hgb 7.9 -> 7.5. Physical exam was benign and unremarkable. 06/02 lower endoscopy performed yesterday showed internal hemorrhoids (which were banded) and no signs of diverticular bleeding. Patient is scheduled for upper endoscopy today to evaluate for any other sites of active bleeding. The underlying etiology for this patient's iron deficiency anemia is still unknown but, with his PMH of vitiligo, a differential may include pernicious anemia. Plan Updates: -Follow up on results of upper endoscopy -Started PO lisinopril 40 mg qD -Started PO atorvastatin 40 mg HS -Started PO thiamine 100 mg qD -Started ISS due to patient's new diabetic status -Ordered diabetes education consult Exam Vital Signs Temp Pulse Resp BP Pulse Ox O2 Del Method O2 Flow Rate 97.8 F 77 16 163/59 H 98 Room Air 3 06/03/25 07:21 06/03/25 09:49 06/03/25 07:21 06/03/25 09:49 06/03/25 07:21 06/03/25 07:21 06/02/25 19:30 Narrative Exam General: A/O x3, no acute distress. Skin: Vitiligo of bilateral hands. Warm, dry, intact, no obvious rash. Head: Normocephalic, atraumatic. Eyes: PERRL, EOMI. Anicteric, vision grossly intact. Ears: No ear pain, no ear discharge, Hearing grossly intact. Nose: No nasal discharge. Mouth/Throat: Oral mucosa moist. No obvious lesions in oropharynx. Neck: Neck supple, non-tender, no cervical lymphadenopathy. Cardiovascular: Regular rate and rhythm, no murmur, no JVD or carotid bruits. +S1/S2. Respiratory: Bilateral lungs are clear to auscultation, respirations unlabored, no crackles, no wheezing. No accessory muscle use. Gastrointestinal: Abdominal tenderness to palpation of epigastrium and LLQ. Soft, non-distended, no palpable masses. No guarding or rebound tenderness. Peristalsis present. Extremities: Symmetrical, no significant deformities. No edema, no cyanosis, no clubbing. 2+ radial pulse bilaterally, 2+ posterior tibial pulse bilaterally. Neuro: No focal deficits observed. Conversant, moving all extremities. No overt cerebellar signs/incoordination. Psychiatric: Cooperative, appropriate affect. Objective Labs 06/04/25 04:50 06/04/25 04:50 Labs: Laboratory Results - last 24 hr 06/02/25 06/03/25 05:09 05:02 WBC 5.4 RBC 4.04 L Hgb 7.5 L Hct 26.6 L MCV 66 L MCH 18.6 L MCHC 28.2 L RDW Std Deviation 44.0 H Plt Count 276 Neut % (Auto) 57 Lymph % (Auto) 27 [place] % (Auto) 11 Eos % (Auto) 5 Baso % (Auto) 0 Neut # (Auto) 3.1 Lymph # (Auto) 1.4 [place] # (Auto) 0.6 Eos # (Auto) 0.2 Baso # (Auto) 0.0 Immature Gran # (Auto) 0.01 H Absolute Nucleated RBC 0.00 Immature Gran % 0 Nucleated RBC % 0 Smear Path Review Sent to Pathologist Sodium 143 Potassium 4.5 Chloride 107 Carbon Dioxide 26.3 Anion Gap 10 BUN 10 Creatinine 0.8 Estim Creat Clear Calc 121.7 eGFR > 60 BUN/Creatinine Ratio 13 Glucose 169 H Calculated Osmolality 287 Calcium 8.5 Corrected Calcium 8.6 Total Bilirubin 0.7 AST 32 ALT 39 Alkaline Phosphatase 52 Total Protein 6.2 Albumin 3.9 Globulin 2.3 Albumin/Globulin Ratio 1.7 Quality Measures Quality Measures VTE prophylaxis Assessment & Plan Assessment Current Active Medications: Generic Name Dose Route Start Last Admin Trade Name Randyq PRN Reason Stop Dose Admin Acetaminophen 650 mg 06/01/25 19:37 06/02/25 20:43 Acetaminophen 325 Mg Tablet PO 07/01/25 19:36 650 mg Q4HR PRN Administration Fever >100 or Pain 1-3 Albuterol/Ipratropium 3 ml 06/01/25 19:37 Albuterol/Ipratropium (Duoneb) Rt Avelina 3 Ml Nebu INH 07/01/25 19:36 Q2HR PRN SHORTNESS OF BREATH OR WHEEZE Atorvastatin Calcium 40 mg 06/02/25 21:00 06/02/25 20:34 Atorvastatin Calcium 20 Mg Tablet PO 07/02/25 20:59 40 mg HS MACIE Administration Dextrose 25 ml 06/02/25 18:13 Dextrose 50%-Water Inj 50 Ml Syringe IV 07/02/25 18:12 Q15MIN PRN BG 50-70 responsive npo pt Dextrose 50 ml 06/02/25 18:13 Dextrose 50%-Water Inj 50 Ml Syringe IV 07/02/25 18:12 Q15MIN PRN BG <50 OR BG <70 & pt unresponsive Glucagon 1 mg 06/02/25 18:13 Glucagon Inj 1 Mg Vial IM Q15MIN PRN BG <70, and no IV access Hydralazine HCl 10 mg 06/01/25 19:37 Hydralazine Inj 20 Mg/Ml Vial IVP 07/01/25 19:36 Q4HR PRN SBP >180 Insulin Human Lispro 0 unit 06/03/25 08:17 Insulin Lispro (Admelog) 1 Unit/0.01 Ml Unit SC 07/02/25 20:59 ACHS MACIE Protocol Lisinopril 40 mg 06/03/25 09:00 06/03/25 09:49 Lisinopril 20 Mg Tablet PO 07/03/25 08:59 40 mg QDAY MACIE Administration Ondansetron HCl 4 mg 06/01/25 19:37 Ondansetron Inj 2 Mg/Ml Inj 2 Ml IVP 07/01/25 19:36 Q6HR PRN NAUSEA OR VOMITING Protocol Thiamine HCl 100 mg 06/03/25 10:30 Thiamine 100 Mg Tablet PO 07/03/25 10:29 QDAY MACIE Plan Patient is a Palauan-speaking 59-year-old male with a PMH of HTN, HLD, and pre- diabetes who presented directly from clinic to the [facility] ED on 06/01/25 after being urged to do so by his PCP for a hemoglobin of 7.2. Patient was admitted for the work-up and management of microcytic anemia suspected to be 2/2 GI bleed. #GI bleed #Acute blood loss anemia #Microcytic anemia #Iron deficiency anemia #Colorectal cancer r/o'd 06/01 admission Hgb 8.5 (MCV 66, RDW 44.5), coagulation panel WNL, stool occult blood (-) Patient reports that he came here after his clinic urged him to for Hgb 7.2 Endorses 5 days of epigastric and LLQ abdominal pain (along with 2 days of non- bloody diarrhea, no hematemesis) that does not worsen with food intake as well as recurrent hematochezia that patient believes is due to his external hemorrhoids Also reports that he previously had an upper endoscopy performed before that found bacteria (possible H.pylori) 01/02/19 colonoscopy showed benign findings 06/01 iron panel was suggestive for iron deficiency anemia, which was initially concerning for colorectal cancer but 06/02 lower endoscopy showed no findings concerning for GI malignancy Reports drinking 3-6 beers per day that is ongoing and started at age 17 (now 59) DDx: pernicious anemia, peptic ulcer disease, esophageal varices, gastritis Dx: -Upper endoscopy pending -Lower endoscopy showed internal hemorrhoids (which were banded) and no signs of diverticular bleeding -Ordered iron panel, showed: iron 7, TIBC 450, iron saturation 1%, unsaturated iron binding 443, and ferritin 4, highly suggestive for iron deficiency anemia Rx: -Monitor Hgb, transfuse if <7 -NPO, pending upper endoscopy -Avoid aspirin and NSAIDs #Hypertension Patient reports PMH of HTN and home medications for HTN treatment 06/01 admission BP 169/81, asymptomatic Rx: -Started PO lisinopril 40 mg qD -Hydralazine PRN #Hyperlipidemia Patient reports PMH of HLD ASCVD 14.1%, High intensity statin recommended Dx: -Continue PO atorvastatin 40 mg HS -Ordered lipid panel, showed: triglycerides 131, total cholesterol 153, LDL 83, HDL 44 #T2DM Patient reports PMH of pre-diabetes Based on this admission's HgbA1c, patient has now become diabetic-->Hgb A1c 6.5% Dx: -Insulin Sliding Scale Q6HR given NPO status -Consult Diabetic Education -Outpatient Metformin. #Alcohol use disorder 06/01 admission AST slightly elevated 38, ALT 40 (WNL), total bilirubin WNL, coagulation panel WNL, no jaundice or ascites noted on physical exam Reports drinking 3-6 beers per day that is ongoing and started at age 17 (now 59) Rx: -Started PO thiamine 100 mg qD -Counseling on cessation of alcohol intake Hospital Management: Disposition: admitted for the work-up and management of microcytic anemia suspected to be 2/2 GI bleed Diet: Clear Liquids (pending upper endoscopy) GI Prophylaxis: none (consider IV Protonix after EGD) Bowel Prophylaxis: none DVT Prophylaxis: contraindicated (bleeding risk) CODE STATUS: Full Code I have examined the patient and conferred with my attending, Dr. James, and my senior resident, Dr. Paulino, regarding them. Martín Molina DO PGY-1 Internal Medicine Attending Provider Attestation/Addendum I have examined the patient, reviewed labs and imaging findings, discussed the case with the resident(s), and reviewed entered orders. I agree with the plan of care as outlined in this note, with these additional summaries/recommendations: Patient is a 59-year-old male with a medical history of primary hypertension, dyslipidemia, and obesity who presents to [facility] emergency department on 06/01/2025 with chief complaint of malaise, low hemoglobin, and intermittent abdominal pain. Patient seen at bedside. No acute overnight events. Patient underwent colonoscopy yesterday that revealed internal hemorrhoids which were banded and mild diverticulosis in the sigmoid colon. Gastroenterology recommends high- fiber diet indefinitely and clear liquid diet for EGD today. Patient will need outpatient follow-up with gastroenterology in 2 weeks. Patient has severe iron deficiency anemia with ferritin 4 on admission. Unclear etiology of PANCHITO. Once more improved we will start ferrous sulfate. Continue home antihypertensives. Patient updated on the plan and in agreement. All questions answered to satisfaction. Anticipate discharge in the next 24 to 48 hours. Please see residents note for additional details and management. Dr. Jacob MD
[2025-06-03] MEDS: THIAMINE 100 MG TABLET PO (12:14)
--- NOTE | 2025-06-03 21:05 | PC.NURSE ---
Pt back from endo
[2025-06-03] MEDS: ATORVASTATIN CALCIUM 20 MG TABLET 40 MG PO (21:28)
[2025-06-04] VITALS: BP 142/62; PULSE 65; RESP 17; TEMP 36.3; O2SAT 99
[2025-06-04 00:55] VITALS: PULSE 69
[2025-06-04 04:00] VITALS: BP 124/61; PULSE 60; PULSE 74; RESP 17; TEMP 36.6; O2SAT 97
[2025-06-04 06:05] LABS: Basophils # (Auto) 0.0 Thou/mm3 (0.0-0.2); Basophils % (Auto) 1 % (0-2.5); Eosinophils # (Auto) 0.3 Thou/mm3 (0.0-0.5); Eosinophils % (Auto) 5 % (0-10); Hematocrit 27.6 % (41.0-53.0); Immature Granulocytes Auto 0.01 Thou/mm3 (0.00-0.00); Lymphocytes # (Auto) 1.7 Thou/mm3 (1.0-4.8); Lymphocytes % (Auto) 26 % (10-50); Mean Corpuscular HGB Conc 28.6 g/dl (31.0-37.0); Mean Corpuscular Hemoglobin 18.8 pg (25.0-35.0); Mean Corpuscular Volume 66 fL (80-100); Monocytes # (Auto) 0.8 Thou/mm3 (0.0-0.8); Monocytes % (Auto) 13 % (0-12); Neutrophils # (Auto) 3.7 Thou/mm3 (1.8-7.7); Neutrophils % (Auto) 56 % (37-80); Nucleated Red Blood Cell # 0.00 Thou/mm3 (0.00-0.00); Nucleated Red Blood Cell % 0 /100 WBC (0); Platelet Count 249 Thou/mm3 (140-440); RDW Standard Deviation 43.6 fL (35.1-43.9); Red Blood Count 4.20 Miln/mm3 (4.50-5.90); White Blood Count 6.6 Thou/mm3 (3.8-10.6)
[2025-06-04 06:21] LABS: Alanine Aminotransferase 35 U/L (10-49); Albumin, Serum 4.3 gm/dL (3.5-5.0); Albumin/Globulin Ratio 1.7 (1.2-2.2); Alkaline Phosphatase 57 U/L (46-116); Anion Gap 10 (7-16); Aspartate Amino Transferase 26 U/L (0-34); BUN/Creatinine Ratio 8 Ratio (12-20); Bilirubin,Total 0.9 mg/dL (0.3-1.2); Blood Urea Nitrogen 7 mg/dL (9-23); Calcium 9.0 mg/dL (8.3-10.6); Calcium (Corrected) 9.0 mg/dL (8.5-10.1); Carbon Dioxide 27.5 mMol/L (20.0-31.0); Chloride 106 mMol/L (98-107); Creatinine (Component) 0.9 mg/dL (0.6-1.3); Estimated Creatinine Clearance 106.4 mL/min (>60); Globulin 2.6 gm/dL (2.3-3.5); Glucose 117 mg/dL (74-106); Osmolality,Calculated 283 (275-295); Potassium 4.2 mMol/L (3.4-5.1); Sodium 143 mMol/L (136-145); Total Protein 6.9 gm/dL (5.7-8.2); eGFR > 60 See Note
[2025-06-04 06:23] LABS: Hemoglobin 7.9 g/dL (13.5-16.0)
[2025-06-04 08:00] VITALS: BP 119/57; PULSE 73; RESP 20; TEMP 37; O2SAT 94
[2025-06-04] MEDS: THIAMINE 100 MG TABLET PO (08:00)
--- NOTE | 2025-06-04 09:39 | PD.HHDS ---
Planned Discharge Date 06/04/25 DS: Providers Provider Date of admission: 06/01/25 15:50 Primary care physician: CAITIE Hurley ([facility]) Admitting Provider: Armando James MD Attending Provider on Admission: Armando James MD Consults: 06/01/25 15:07 Consult to Gastroenterology Stat Comment: Consulting Provider: Cody Covarrubias 06/01/25 18:04 [facility] Referral - Knowledge Deficit Routine Comment: Positive screening for knowledge deficit needs. 06/02/25 18:13 Consult Diabetic Routine Comment: Instructions: new diagnosis of diabetes, A1c of 6.5% Attending Provider on DC: Armando James MD Discharging Provider: Armando James MD Diagnosis Problem List Completed Was Problem List Reviewed/Reconciled?: Yes Discharge Assessment Assessment: Patient is a Kenyan-speaking 59-year-old male with a PMH of HTN, HLD, and pre-diabetes who presented directly from clinic to the [facility] ED on 06/01/25 after being urged to do so by his PCP for a hemoglobin of 7.2. Patient was admitted for the work-up and management of microcytic anemia. Patient was admitted to the hospital for GI bleed. Iron panel was obtained which revealed severe iron deficiency anemia with ferritin 4. Patient underwent colonoscopy which revealed internal hemorrhoids which were banded and diverticulosis. Recommend high-fiber diet indefinitely. Patient then underwent EGD which was only significant for mild gastritis. Patient's microcytic anemia most likely multifactorial secondary to acute blood loss anemia from hemorrhoids and iron deficiency anemia. Patient will be started on oral ferrous sulfate every other day. He was advised to follow-up with his primary care provider for continued surveillance and management. He was counseled to avoid alcohol use. Patient has history of primary hypertension and continue home lisinopril. Patient has hyperlipidemia and ASCVD score of 14.1% indicating high intensity statin for primary prevention. Continue atorvastatin 40 mg p.o. at bedtime. Lipid panel triglycerides 131, total cholesterol 153, LDL 83, HDL 44. Patient has diabetes mellitus type 2. A1c 6.5%. We will discharge patient on metformin and advised to follow-up with primary care provider. Diabetic diet. Encourage weight loss. Patient was counseled to follow-up with primary care provider within 7 days of discharge. He was given strict return precautions if bleeding returns. Repeat hematology and chemistry panel within 2 weeks. Patient updated on the plan and in agreement. All questions answered to satisfaction. Patient is safe for discharge on 06/04/2025. Hospital Course - Hospitalist Status at Discharge Functional status at discharge: independent ambulation Time Spent with Patient Time attestation: Total time spent providing and/or coordinating discharge services: Time spent: Greater than 30 minutes Discharge Results Labs Diagrams: 06/04/25 04:50 06/04/25 04:50 Labs: Short CBC 06/04/25 Range/Units 04:50 WBC 6.6 (3.8-10.6) Thou/mm3 Hgb 7.9 L (13.5-16.0) g/dL Hct 27.6 L (41.0-53.0) % Plt Count 249 (140-440) Thou/mm3 BMP 06/04/25 04:50 Sodium 143 Potassium 4.2 Chloride 106 Carbon Dioxide 27.5 BUN 7 L Creatinine 0.9 Glucose 117 H D Calcium 9.0 Liver Function 06/04/25 Range/Units 04:50 Total Bilirubin 0.9 (0.3-1.2) mg/dL AST 26 (0-34) U/L ALT 35 (10-49) U/L Alkaline Phosphatase 57 (46-116) U/L Albumin 4.3 (3.5-5.0) gm/dL Exam Vital Signs Temp Pulse Resp BP Pulse Ox O2 Del Method O2 Flow Rate 98.6 F 73 20 119/57 L 94 L Room Air 3 06/04/25 08:00 06/04/25 08:00 06/04/25 08:00 06/04/25 08:00 06/04/25 08:00 06/04/25 08:00 06/03/25 20:40 Narrative General: A/O x3, no acute distress. Skin: Vitiligo of bilateral hands. Warm, dry, intact, no obvious rash. Head: Normocephalic, atraumatic. Eyes: PERRL, EOMI. Anicteric, vision grossly intact. Ears: No ear pain, no ear discharge, Hearing grossly intact. Nose: No nasal discharge. Mouth/Throat: Oral mucosa moist. No obvious lesions in oropharynx. Neck: Neck supple, non-tender, no cervical lymphadenopathy. Cardiovascular: Regular rate and rhythm, no murmur, no JVD or carotid bruits. +S1/S2. Respiratory: Bilateral lungs are clear to auscultation, respirations unlabored, no crackles, no wheezing. No accessory muscle use. Gastrointestinal: Abdominal tenderness to palpation of epigastrium and LLQ. Soft, non-distended, no palpable masses. No guarding or rebound tenderness. Peristalsis present. Extremities: Symmetrical, no significant deformities. No edema, no cyanosis, no clubbing. 2+ radial pulse bilaterally, 2+ posterior tibial pulse bilaterally. Neuro: No focal deficits observed. Conversant, moving all extremities. No overt cerebellar signs/incoordination. Psychiatric: Cooperative, appropriate affect. Discharge Plan Plan Patient Disposition: HOME (Self Care) Disposition Comment: Patient stable for discharge home Patient condition on transfer: Stable Care Plan Goals: Instructions: -Please continue new medication of Atorvastatin 40 mg at night for cholesterol -Please continue Metformin 500 mg once daily for our diabetes mellitus given a1c 6.5% -Please follow up with your primary care provider within one week of discharge -If your symptoms worsen,please seek immediate medical attention and return to your nearest emergency room -If you do not have a primary care provider, [facility], [place] [address], Prescriptions/Referrals Prescriptions/Med Rec: New atorvastatin [Lipitor] 40 mg tablet 40 mg PO HS 90 Days Qty: 90 0RF metformin 500 mg tablet 500 mg PO QDAY 90 Days Qty: 90 0RF ferrous sulfate 325 mg (65 mg iron) tablet 325 mg PO Q OTHER DAY 30 Days Qty: 15 0RF Continued lisinopril 40 mg tablet 40 mg PO QDAY Patient Comments: TOME 1 TABLETA POR VIA ORAL TODOS LOS JO Referrals: Riley Garsia FNP [Primary Care Provider] Patient/Caregiver Discharge Instructions Discharge Activity: activity as tolerated Print Language: Kenyan Stand Alone Forms: [employer] Award Info., Patient Portal Info Letter, Work/Release Restrictions Discharge Order Discharge Orders: Discharge (Routine); Ordered 06/04/25 Ordered By: Armando James Quality Discharge Quality Measures none
[2025-06-04] MEDS: INFLUENZA VIRUS QUADRIVALENT 0.5 ML SYRINGE IMi (10:09)
== END 2025-06-04 10:15 | disposition home or self-care (01) ==
LOC: SERX 14:00 → SERHOLD 16:04 → S3NX 06-02 05:49 → SERHOLD 06-03 06:29 → S3NX 06-03 06:30
PROVIDERS: Nurse Practitioner Family; Specialist; Admitting Provider Student in an Organized Health Care Education/Training Program; Emergency Provider Emergency Medicine; PCP Nurse Practitioner Family; Visit Provider Student in an Organized Health Care Education/Training Program
PROC: 0DJD8ZZ Inspection of Lower Intestinal Tract, Via Natural or Artificial Opening Endoscopic (ICD-10-PCS; CPT 45378; principal; 2025-06-02 18:00)
PROC: (CPT 43239; principal; 2025-06-03 19:00)
DX: K64.2 Third degree hemorrhoids (principal); K57.30 Diverticulosis of large intestine without perforation or abscess without bleeding; K31.89 Other diseases of stomach and duodenum; K29.70 Gastritis, unspecified, without bleeding; I10 Essential (primary) hypertension; E78.5 Hyperlipidemia, unspecified; D62 Acute posthemorrhagic anemia; E11.9 Type 2 diabetes mellitus without complications; L80 Vitiligo; F10.90 Alcohol use, unspecified, uncomplicated; E66.9 Obesity, unspecified; Z68.31 Body mass index [BMI] 31.0-31.9, adult
CPT/HCPCS: 45398; 43235; 36415; 80053; 80061; 82270; 82728; 83036; 83540; 83550; 84484; 85025; 85610; 85730; 86850; 86900; 86901; 86923; 90471; 90686; 93225; 94664; 99284; A4217; A4649; G0378; J1200; J1815; J2250; J3010; A9270; G0008; J9060